=== PATIENT | male | born 1945 | race Caucasian/White ===

== ENCOUNTER 2019-02-07 15:17 | Emergency (ER) | payer MEDICARE, BC ==
[2019-02-07 17:02] LABS: ABS Basophils 0.1 10^3/ul (0-0.2); ABS Eosinophils 0.2 10^3/ul (0-0.6); ABS Lymphocytes 1.6 10^3/ul (1.0-4.8); ABS Monocytes 0.7 10^3/ul (0-0.8); ABS Neutrophils 3.4 10^3/ul (1.5-7.7); Eosinophil % 3.6 %; Hematocrit 43 % (42-52); Hemoglobin 14.9 g/dL (14.0-18.0); Lymphocyte % 26.9 %; Mean Corpuscular HGB Conc 35 g/dL (31-36); Mean Corpuscular Hemoglobin 32 pg (27-31); Mean Corpuscular Volume 91 fL (80-94); Mean Platelet Volume 6.9 fL (7.4-10.4); Platelet Count 233 10^3/uL (150-450); Red Blood Count 4.72 10^6 /uL (4.18-5.48); Red Cell Distribution Width 13 % (10-15)
[2019-02-07 17:21] LABS: Albumin 4.2 g/dL (3.2-5.2); Albumin/Globulin Ratio 1.4 (1-3); BUN/Creatinine Ratio 14.8 (8-20); Calcium 8.9 mg/dL (8.6-10.3); EGFR African American 75.6 (>60); EGFR Non-African American 62.5 (>60); Potassium 4.4 mmol/L (3.5-5.0); Total Bilirubin 0.8 mg/dL (0.2-1.0); Total Protein 7.2 g/dL (6.4-8.9)
[2019-02-07] MEDS ORDERED: Aspirin 81 mg CHEW TAB* 81 MG TAB.CHEW PO ONE (17:49)
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
[2019-02-07 20:54] VITALS: BP 177/84
== END 2019-02-07 21:03 | disposition left against medical advice (07) ==
LOC: ED 15:17
DX: R07.9 Chest pain, unspecified (principal); K44.9 Diaphragmatic hernia without obstruction or gangrene; E11.9 Type 2 diabetes mellitus without complications; E78.00 Pure hypercholesterolemia, unspecified; I10 Essential (primary) hypertension; K21.9 Gastro-esophageal reflux disease without esophagitis; Z86.73 Personal history of transient ischemic attack (TIA), and cerebral infarction without residual deficits; Z87.891 Personal history of nicotine dependence; Z79.82 Long term (current) use of aspirin; Z79.84 Long term (current) use of oral hypoglycemic drugs; Z79.899 Other long term (current) drug therapy
CPT/HCPCS: 36415; 71045; 80053; 83605; 84484; 85025; 93005; 99283; A9270-GY